=== PATIENT | male | born 1975 | race Caucasian/White ===

== ENCOUNTER 2020-04-04 00:47 | Emergency (ER) | payer SELFPAY ==
[~2020-04-04] VITALS: Ht 175.3 cm; Wt 67.1 kg
[2020-04-04 01:02] VITALS: BP 129/70
[2020-04-04] MEDS ORDERED: CYCLOBENZAPRINE 10 MG TAB PO ONE (01:35)
[2020-04-04] MEDS ORDERED: KETOROLAC 60 MG/2 ML VIAL IM ONE (01:35)
--- NOTE | 2020-04-04 01:39 | NUR ---
LAB AT BEDSIDE.
[2020-04-04 02:05] LABS: ANION GAP 16.8 (8-16); CARBON DIOXIDE 24.7 mmol/L (21-32); CREATININE 1.2 mg/dL (0.6-1.3); POTASSIUM 3.5 mmol/L (3.5-5.1)
--- NOTE | 2020-04-04 02:12 | NUR ---
Dr Bg Cuellar made aware.
[2020-04-04 02:13] VITALS: BP 129/70
--- NOTE | 2020-04-04 02:13 | NUR ---
PATIENT ELOPED FROM FACILITY. DISCHARGE INSTRUCTIONS NOT GIVEN TO PATIENT. DR. reed NOTIFIED.
== END 2020-04-04 02:13 | disposition left against medical advice (07) ==
LOC: MED 00:47
DX: M54.5 Low back pain (principal); R10.9 Unspecified abdominal pain; F17.210 Nicotine dependence, cigarettes, uncomplicated
CPT/HCPCS: 36415; 80048; 81002; 96372; 99283; J1885